=== PATIENT | male | born 1965 | race African-American/Black ===

== ENCOUNTER 2023-03-01 18:44 | Emergency (ER) | payer MEDICAID, OTHER ==
[~2023-03-01] VITALS: Ht 175.3 cm; Wt 91.0 kg
[2023-03-01] MEDS ORDERED: KETOROLAC 30MG/ML VIAL IM ONE (23:30)
[2023-03-02] MEDS ORDERED: NAPR-681 MT (01:00)
[2023-03-02 02:14] VITALS: BP 154/93
== END 2023-03-02 02:15 | disposition home or self-care (01) ==
LOC: ER 18:44
DX: G89.29 Other chronic pain (principal); M25.511 Pain in right shoulder
CPT/HCPCS: 71045; 73030; 96372; 99284; J1885